=== PATIENT | female | born 1980 | race Caucasian/White ===

== ENCOUNTER 2021-12-25 12:02 | Emergency (ER) | payer OTHER, SELFPAY ==
[2021-12-25 12:20] VITALS: BP 133/92; PULSE 115; RESP 18; TEMP 36.8; O2SAT 99
--- NOTE | 2021-12-25 12:39 | ED.GENADULT ---
HPI - General Adult General Chief complaint: Unspecified Stated complaint: work related injury Time Seen by Provider: 12/25/21 12:28 Source: patient, RN notes reviewed and old records reviewed Mode of arrival: ambulatory Limitations: no limitations History of Present Illness HPI narrative: 41 year old female accompanied by fellow worker presents to [facility] care with complaints of being shocked by equipment at work about 1 hour prior to arrival. Patient states that she turned the toggle seitvch to off position on the lensometer and it shocked her left hand. She states no leigh noted to her skin, but has metal taste in her mouth, headache pain, no vision changes, no dizziness or any chest pain or shortness of breath. She is tearful, anxious and shaky. MD complaint: shocked by electrical equipment at work Onset (ago): hour(s) (1 hour prior to arrival) Treatments prior to arrival: none Related Data Home Medications Medication Instructions Recorded Confirmed No Home Medications 12/25/21 12/25/21 Allergies Allergy/AdvReac Type Severity Reaction Status Date / Time No Known Allergies Allergy Verified 12/25/21 12:24 Review of Systems Review of Systems: CONSTITUTIONAL: Denies fever, chills, or sweats. EYES: Denies visual changes, redness, or discharge. ENT: Denies rhinorrhea, congestion, sore throat, or otalgia, reports metallic taste in mouth CARDIOVASCULAR: Denies chest pain, palpitations, or edema. RESPIRATORY: Denies cough or dyspnea. GASTROINTESTINAL: Denies abdominal pain, nausea, vomiting, or diarrhea. GENITOURINARY: Denies dysuria or hematuria. SKIN: Denies rash or itching. MUSCULOSKELETAL: Denies back pain, joint pain, or myalgia. NEUROLOGIC: Positive for headache, numbness, or weakness. PSYCHIATRIC: Denies anxiety or depression, anxious and tearful All systems reviewed & are unremarkable except as noted in HPI and below PMFSH Past Medical History Medical History (Updated 12/25/21 @ 13:12 by Darlin Boyce NP) No pertinent past medical history Surgical History Surgical History (Updated 12/25/21 @ 13:12 by Darlin Boyce NP) S/P bilateral breast reduction [place] teeth extracted Social History Social History (Updated 12/25/21 @ 13:10 by Darlin Boyce NP) Smoking status: Current every day smoker Tobacco type: cigarettes Alcohol intake: current Substance use type: marijuana Last use: occasional social Living arrangements: with family Gender identity (if verbalized by the patient): Female Comments At time of signature, agree with nursing past medical, surgical, social and family history. There is no relevant family history pertinent to the presenting complaint Exam Narrative: GENERAL: Well-appearing, well-nourished, and in no acute distress.anxious HEAD: Normocephalic, atraumatic. EYES: PERRLA and EOMI. ENT: Nares clear, no rhinorrhea or epistaxis. Mucous membranes moist.TM's normal,throat pink with no lesions or exudates, no tonsil swelling NECK: Supple.no lymphadenopathy CHEST: Clear to auscultation. No respiratory distress.no tachypnea SAO2 99% on room air HEART: Regular rate and rhythm. No murmur heard. Normal peripheral pulses. ABDOMEN: Soft, nontender, nondistended, normal active bowel sounds. EXTREMITIES: Normal range of motion. No edema. SKIN: Warm, dry, no rash. NEURO: No focal deficits. Alert and oriented x3. Course Course Level of Care: Express Care Visit Vital Signs Vital signs: Vital Signs Temperature 36.8 C 12/25/21 12:20 Pulse Rate 115 H 12/25/21 12:20 Respiratory Rate 18 12/25/21 12:20 Blood Pressure 133/92 H 12/25/21 12:20 Pulse Oximetry 99 12/25/21 12:20 Temperature 36.8 C 12/25/21 12:20 Pulse Rate 97 12/25/21 13:08 Respiratory Rate 18 12/25/21 12:20 Blood Pressure 133/92 H 12/25/21 12:20 Pulse Oximetry 99 12/25/21 12:20 Medical Decision Making Differential Diagnosis Differential Diagnosis: electrical shock, head
--- NOTE | 2021-12-25 12:58 | ECG_ITS ---
Measurements Intervals [place] Rate: 85 P: 39 MA: 149 QRS: 2 QRSD: 96 T: 45 QT: 355 QTc: 424 Interpretive Statements SINUS RHYTHM POSSIBLE LEFT ATRIAL ENLARGEMENT [-0.1mV P WAVE IN V1/V2] INCOMPLETE RIGHT BUNDLE BRANCH BLOCK [90+ ms QRS DURATION, TERMINAL R IN V1/V2, 40+ ms S IN I/aVL/V4/V5/V6] NO PREVIOUS ECG AVAILABLE FOR COMPARISON Electronically Signed On 12-26-2021 13:33:01 CDT by Nely Duarte M.D.
[2021-12-25 13:08] VITALS: PULSE 97
== END 2021-12-25 13:08 | disposition home or self-care (01) ==
PROVIDERS: Emergency Provider Registered Nurse
DX: T75.4XXA Electrocution, initial encounter (principal); W86.8XXA Exposure to other electric current, initial encounter; Y99.0 Civilian activity done for income or pay; F17.210 Nicotine dependence, cigarettes, uncomplicated; F12.90 Cannabis use, unspecified, uncomplicated
CPT/HCPCS: 93005; 99213; G0463

== ENCOUNTER → 2022-03-07 13:50 | Outpatient (CLI) | payer OTHER, SELFPAY ==
--- NOTE | ~2022-03-07 | MM_ITS ---
EXAMINATION: MM screening lara BI w rojas HISTORY: Screening TECHNIQUE: Craniocaudal and mediolateral oblique 3-D tomosynthesis images were obtained and synthetic 2-D images were generated. CAD analysis was submitted and interpreted. COMPARISON: No prior mammogram is available for comparison at this institution. BREAST PARENCHYMAL COMPOSITION: Breast composed of scattered areas of fibroglandular density FINDINGS: There is no mammographic evidence for malignancy in the right breast. There are focal asymm etries in the upper outer quadrant of the left breast. IMPRESSION: 1. Focal asymmetries upper-outer quadrant of the left breast. 2. Additional mammographic views and possible breast ultrasound are recommended. BI-RADS Category 0: Incomplete: Needs additional imaging evaluation. Reviewed, dictated and finalized at location A. IMPRESSION: 1. Focal asymmetries upper-outer quadrant of the left breast. 2. Additional mammographic views and possible breast ultrasound are recommended . BI-RADS Category 0: Incomplete: Needs additional imaging evaluation.
== END ==
PROVIDERS: PCP Nurse Practitioner; Visit Provider Nurse Practitioner
DX: Z12.31 Encounter for screening mammogram for malignant neoplasm of breast (principal); R92.8 Other abnormal and inconclusive findings on diagnostic imaging of breast
CPT/HCPCS: 77063; 77067

== ENCOUNTER → 2022-04-22 08:40 | Outpatient (CLI) | payer OTHER, SELFPAY ==
--- NOTE | ~2022-04-22 | MMUS_ITS ---
EXAMINATION: MM diagnostic lara LT w rojas, US breast LT limited HISTORY: Follow-up left breast asymmetry TECHNIQUE: Additional 3-D tomosynthesis images of the left breast were performed and synthetic 2-D im ages were generated. CAD analysis was submitted and interpreted. High resolution Limited left breast ultrasound was performed. COMPARISON: 03/07/2022 BREAST PARENCHYMAL COMPOSITION: Breast composed of scattered areas of fibroglandular density FINDINGS: MAMMOGRAPHIC FINDINGS: The area of asymmetry in the upper outer quadrant of the left breast is less dense with spot compress ion views. There is a small lymph node in the upper outer quadrant with central lucency. No oracle database architect ural distortion or suspicious calcifications. ULTRASOUND: Limited left breast ultrasound: At 1:00, 6 cm from the nipple there is a 7 mm intramammary lymph node . No other discrete solid or cystic masses are identified. There is dense heterogeneous echotexture. IMPRESSION: 1. Asymmetric density in the upper outer quadrant of the left breast is most likely benign superimpos ed fibroglandular tissue. No definite sonographic correlate. 2. Recommend 6 month follow-up diagnostic left mammogram BI-RADS category 3, probably benign findings. Reviewed, dictated and finalized at location A. IMPRESSION: 1. Asymmetric density in the upper outer quadrant of the left breast is most li bethany benign superimposed fibroglandular tissue. No definite sonographic correla te. 2. Recommend 6 month follow-up diagnostic left mammogram BI-RADS category 3, probably benign findings.
== END ==
PROVIDERS: PCP Family Medicine; Visit Provider Obstetrics & Gynecology Gynecology
DX: R92.8 Other abnormal and inconclusive findings on diagnostic imaging of breast (principal)
CPT/HCPCS: 76642; 77061; 77065; G0279

== ENCOUNTER 2024-07-26 08:56 | Outpatient (CLI) | payer BC, SELFPAY ==
--- NOTE | ~2024-07-26 | MMUS_ITS ---
EXAMINATION: MM diagnostic lara BI w rojas, US breast LT limited HISTORY: Left breast asymmetry. TECHNIQUE: Additional 3-D tomosynthesis images of the breasts were performed and synthetic 2-D images were generated. CAD analysis was submitted and interpreted. High resolution Limited left breast ultr asound was performed. COMPARISON: 03/07/2022 BREAST PARENCHYMAL COMPOSITION: Not dense: There are scattered areas of fibroglandular density. FINDINGS: MAMMOGRAPHIC FINDINGS: The left breast is stable. No new masses, calcifications or architectural distortion. ULTRASOUND: Limited left breast ultrasound: There is a normal-appearing lymph node in the left axilla without juan dence for significant cortical thickening. Lymph node measures 2 cm. No other discrete masses are bonita ntified. IMPRESSION: 1. No evidence for malignancy in either breast. 2. Routine yearly screening mammogram and regular clinical breast examination are recommended. BI-RADS Category 2: Benign finding(s). Reviewed, dictated and finalized at location [] CAL BILLING REPRESENTATIVE IMPRESSION: 1. No evidence for malignancy in either breast. 2. Routine yearly screening mammogram and regular clinical breast examination a re recommended. BI-RADS Category 2: Benign finding(s).
== END 2024-07-26 08:57 | disposition home or self-care (01) ==
PROVIDERS: PCP Nurse Practitioner; Visit Provider Nurse Practitioner
DX: R92.8 Other abnormal and inconclusive findings on diagnostic imaging of breast (principal)
CPT/HCPCS: 76642; 77062; 77066; G0279